=== PATIENT | male | born 1985 | race Hispanic/Latino ===

== ENCOUNTER 2020-11-16 05:04 | Inpatient (IN) | payer SELFPAY ==
[~2020-11-16] VITALS: Ht 185.4 cm; Wt 88.5 kg
[2020-11-16] MEDS ORDERED: ZIPRASIDONE 20 MG VIAL IM STA (05:24)
[2020-11-16] MEDS ORDERED: LORAZEPAM INJ 2 MG/ML VIAL ONE (05:29)
[2020-11-16] MEDS ORDERED: ZIPRASIDONE 20 MG VIAL IM ONE (05:29)
[2020-11-16] MEDS ORDERED: LORAZEPAM INJ 2 MG/ML VIAL IM ONE (05:30)
[2020-11-16 06:27] LABS: BASOPHILS # (AUTO) 0.1 (0.0-0.1); EOSINOPHILS % 0.1 % (0.0-6.0); HEMATOCRIT 35.3 % (38.2-49.6); HEMOGLOBIN 12.2 g/dL (14.0-18.0); LYMPHOCYTES % 10.5 % (18.0-39.1); MEAN CORPUSCULAR HEMOGLOBIN 31.5 pg (28-32); MEAN CORPUSCULAR HGB CONC 34.6 g/dL (31-35); MEAN CORPUSCULAR VOLUME 91.2 fL (81-99); MONOCYTES # (AUTO) 0.7 (0.2-0.8); MONOCYTES % 6.9 % (4.4-11.3); NEUTROPHILS # (AUTO) 7.8 (2.1-6.9); NEUTROPHILS % 81.1 % (38.7-80.0); PLATELET COUNT 216 x10e3/uL (140-360); RED BLOOD COUNT 3.87 x10e6/uL (4.3-5.7); RED CELL DISTRIBUTION WIDTH 12.1 % (11.7-14.4)
[2020-11-16 06:29] LABS: CLARITY,URINE SL CLOUDY (CLEAR); COLOR,URINE YELLOW (YELLOW); LEUKOCYTE ESTERASE ,URINE NEGATIVE (NEGATIVE); NITRITE,URINE NEGATIVE (NEGATIVE); PROTEIN,URINE DIPSTICK 1+ (NEGATIVE)
[2020-11-16 06:30] LABS: KETONES,URINE >=160 (NEGATIVE); URINE UROBILINOGEN 1 mg/dL (0.2 - 1)
[2020-11-16 06:31] LABS: AMPHETAMINES SCREEN,URINE NEGATIVE (NEGATIVE); BENZODIAZEPINES SCREEN,URINE NEGATIVE (NEGATIVE); PHENCYCLIDINE SCREEN,URINE NEGATIVE (NEGATIVE)
[2020-11-16 06:41] LABS: INR 1.06; PROTHROMBIN TIME 14.5 seconds (11.9-14.5)
[2020-11-16 06:42] LABS: BACTERIA,URINE RARE /HPF; EPITHELIAL CELLS,URINE FEW /LPF; PARTIAL THROMBOPLASTIN TIME 29.1 seconds (23.8-35.5)
[2020-11-16 06:50] LABS: ALANINE AMINOTRANSFERASE 43 IU/L (0-55); ALBUMIN 4.2 g/dL (3.5-5.0); ALBUMIN/GLOBULIN RATIO 1.4 (0.8-2.0); ALKALINE PHOSPHATASE 77 IU/L (40-150); ANION GAP 26.4 mmol/L (8-16); BLOOD UREA NITROGEN 31 mg/dL (7-26); BUN/CREATININE RATIO 29 (6-25); CALCIUM 8.9 mg/dL (8.4-10.2); CARBON DIOXIDE 17 mmol/L (22-29); CHLORIDE 96 mmol/L (98-107); CREATINE KINASE 1913 IU/L (30-200); CREATININE, SERUM 1.08 mg/dL (0.72-1.25); EST GLOMERULAR FILTRATION RATE > 60 ML/MIN (60-); GLUCOSE 83 mg/dL (74-118); POTASSIUM 3.4 mmol/L (3.5-5.1); SODIUM 136 mmol/L (136-145)
[2020-11-16 06:52] LABS: SALICYLATE < 5.0 mg/dL (0-30)
[2020-11-16] MEDS ORDERED: SODIUM CHLORIDE 0.9% 1000ML 1,000 ML IV STA (07:07)
[2020-11-16 07:09] LABS: THYROID STIMULATING HORMONE 1.528 uIU/mL (0.350-4.940)
[2020-11-16] MEDS ORDERED: KCL 20MEQ/.9 SOD CHL 1,000 ML IV ONE (07:15)
[2020-11-16] MEDS ORDERED: CEFTRIAXONE SOD 1 GM/NS 50 ML 50 ML IV ONE (07:30)
[2020-11-16] MEDS ORDERED: IOPAMIDOL 370 MG/ML 200 ML INFUS..BTL INJ ONE (07:51)
[2020-11-16] MEDS ORDERED: SODIUM CHLORIDE 0.9% 50ML 0 ML ONE (07:51)
[2020-11-16 07:55] LABS: AMYLASE 32 U/L (25-125); LIPASE 8 U/L (8-78)
[2020-11-16] MEDS ORDERED: DIPHENHYDRAMINE HCL INJ 50 MG/ML VIAL IV ONE (08:15)
[2020-11-16] MEDS ORDERED: LORAZEPAM INJ 2 MG/ML VIAL IV ONE (08:15)
[2020-11-16] MEDS: SODIUM CHLORIDE 0.9% 1000ML 1,000 ML IV SCH ×3 (11:26→20:49)
[2020-11-16 12:15] VITALS: BP 133/78
[2020-11-16 12:58] LABS: CREATINE KINASE MB 20.7 ng/mL (0-5.0)
[2020-11-16 13:10] VITALS: BP 133/78
[2020-11-16 13:45] VITALS: BP 133/78
[2020-11-16] MEDS ORDERED: ZIPRASIDONE 20 MG VIAL IM PRN ×2 (14:30→15:30)
[2020-11-16 16:57] VITALS: BP 124/72
[2020-11-16 18:43] LABS: CREATINE KINASE MB 13.5 ng/mL (0-5.0)
[2020-11-16 21:25] VITALS: BP 160/96
[2020-11-17] VITALS (7 sets, daily range): BP systolic 128–131; BP diastolic 82–101
[2020-11-17] MEDS: SODIUM CHLORIDE 0.9% 1000ML 1,000 ML IV SCH ×4 (04:23→20:20)
[2020-11-17 05:44] LABS: BASOPHILS # (AUTO) 0.1 (0.0-0.1); BASOPHILS % 1.2 % (0.0-1.0); EOSINOPHILS # (AUTO) 0.3 (0.0-0.4); EOSINOPHILS % 6.5 % (0.0-6.0); HEMATOCRIT 34.4 % (38.2-49.6); HEMOGLOBIN 11.4 g/dL (14.0-18.0); LYMPHOCYTES # (AUTO) 1.1 (1.0-3.2); LYMPHOCYTES % 22.9 % (18.0-39.1); MEAN CORPUSCULAR HEMOGLOBIN 31.1 pg (28-32); MEAN CORPUSCULAR HGB CONC 33.1 g/dL (31-35); MONOCYTES # (AUTO) 0.5 (0.2-0.8); MONOCYTES % 10.6 % (4.4-11.3); NEUTROPHILS # (AUTO) 2.9 (2.1-6.9); NEUTROPHILS % 58.6 % (38.7-80.0); PLATELET COUNT 189 x10e3/uL (140-360); RED BLOOD COUNT 3.66 x10e6/uL (4.3-5.7); RED CELL DISTRIBUTION WIDTH 12.4 % (11.7-14.4)
[2020-11-17 06:51] LABS: ALANINE AMINOTRANSFERASE 29 IU/L (0-55); ALBUMIN 3.1 g/dL (3.5-5.0); ALBUMIN/GLOBULIN RATIO 1.1 (0.8-2.0); ALKALINE PHOSPHATASE 69 IU/L (40-150); ANION GAP 11.1 mmol/L (8-16); BLOOD UREA NITROGEN 14 mg/dL (7-26); BUN/CREATININE RATIO 15 (6-25); CALCIUM 7.8 mg/dL (8.4-10.2); CARBON DIOXIDE 24 mmol/L (22-29); CHLORIDE 106 mmol/L (98-107); CREATININE, SERUM 0.91 mg/dL (0.72-1.25); EST GLOMERULAR FILTRATION RATE > 60 ML/MIN (60-); GLUCOSE 152 mg/dL (74-118); POTASSIUM 3.1 mmol/L (3.5-5.1); SODIUM 138 mmol/L (136-145)
[2020-11-17 08:33] LABS: CREATINE KINASE MB 5.8 ng/mL (0-5.0)
[2020-11-17] MEDS: QUETIAPINE FUMARATE 25 MG TAB PO PRN (11:25)
[2020-11-17] MEDS: LORAZEPAM INJ 2 MG/ML VIAL IM PRN (12:14)
[2020-11-17] MEDS ORDERED: QUETIAPINE FUMARATE 25 MG TAB PO SCH (12:45)
[2020-11-17] MEDS ORDERED: LORAZEPAM INJ 2 MG/ML VIAL IM NR (12:45)
[2020-11-17] MEDS ORDERED: HALOPERIDOL LACTATE 5 MG/ML VIAL IM NR (12:45)
[2020-11-17] MEDS ORDERED: DIPHENHYDRAMINE HCL INJ 50 MG/ML VIAL IM NR (12:45)
[2020-11-17] MEDS ORDERED: DIPHENHYDRAMINE HCL INJ 50 MG/ML VIAL ONE ×2 (12:51→22:30)
[2020-11-17] MEDS ORDERED: HALOPERIDOL LACTATE 5 MG/ML VIAL ONE ×2 (12:52→22:31)
[2020-11-17] MEDS: METHADONE HCL 5 MG TAB PO SCH (16:25)
[2020-11-17] MEDS: DIVALPROEX SODIUM 250 MG TAB...DR PO SCH (20:20)
[2020-11-17] MEDS: QUETIAPINE FUMARATE 25 MG TAB PO SCH (20:20)
[2020-11-17] MEDS ORDERED: HALOPERIDOL LACTATE 5 MG/ML VIAL IM ONE (22:30)
[2020-11-17] MEDS ORDERED: DIPHENHYDRAMINE HCL INJ 50 MG/ML VIAL IM ONE (22:30)
[2020-11-17] MEDS ORDERED: LORAZEPAM INJ 2 MG/ML VIAL ONE (22:30)
[2020-11-17] MEDS ORDERED: LORAZEPAM INJ 2 MG/ML VIAL IM ONE (22:30)
[2020-11-18 05:00] VITALS: BP 112/72
[2020-11-18 05:27] VITALS: BP 112/72
[2020-11-18] MEDS ORDERED: LORAZEPAM INJ 2 MG/ML VIAL ONE (05:43)
[2020-11-18] MEDS ORDERED: HALOPERIDOL LACTATE 5 MG/ML VIAL ONE (05:43)
[2020-11-18] MEDS ORDERED: DIPHENHYDRAMINE HCL INJ 50 MG/ML VIAL ONE (05:44)
[2020-11-18] MEDS ORDERED: LORAZEPAM INJ 2 MG/ML VIAL IV ONE (05:45)
[2020-11-18] MEDS ORDERED: DIPHENHYDRAMINE HCL INJ 50 MG/ML VIAL IV ONE (05:45)
[2020-11-18] MEDS ORDERED: HALOPERIDOL LACTATE 5 MG/ML VIAL IV ONE (05:45)
[2020-11-18] MEDS: SODIUM CHLORIDE 0.9% 1000ML 1,000 ML IV SCH ×3 (05:54→22:01)
[2020-11-18 07:53] VITALS: BP 112/72
[2020-11-18] MEDS: DIVALPROEX SODIUM 250 MG TAB...DR PO SCH ×3 (09:06→22:00)
[2020-11-18] MEDS: QUETIAPINE FUMARATE 25 MG TAB PO SCH ×3 (09:06→22:00)
[2020-11-18] MEDS: METHADONE HCL 5 MG TAB PO SCH ×2 (09:06→16:31)
[2020-11-18 09:10] LABS: BASOPHILS # (AUTO) 0.1 (0.0-0.1); BASOPHILS % 1.6 % (0.0-1.0); EOSINOPHILS # (AUTO) 0.3 (0.0-0.4); EOSINOPHILS % 6.3 % (0.0-6.0); HEMOGLOBIN 12.6 g/dL (14.0-18.0); LYMPHOCYTES # (AUTO) 1.4 (1.0-3.2); LYMPHOCYTES % 31.4 % (18.0-39.1); MEAN CORPUSCULAR HEMOGLOBIN 32.1 pg (28-32); MEAN CORPUSCULAR HGB CONC 33.2 g/dL (31-35); MEAN CORPUSCULAR VOLUME 96.9 fL (81-99); MONOCYTES # (AUTO) 0.5 (0.2-0.8); MONOCYTES % 10.3 % (4.4-11.3); NEUTROPHILS # (AUTO) 2.2 (2.1-6.9); NEUTROPHILS % 50.2 % (38.7-80.0); PLATELET COUNT 180 x10e3/uL (140-360); RED BLOOD COUNT 3.92 x10e6/uL (4.3-5.7); RED CELL DISTRIBUTION WIDTH 12.5 % (11.7-14.4)
[2020-11-18 09:55] LABS: ALANINE AMINOTRANSFERASE 30 IU/L (0-55); ALBUMIN 3.1 g/dL (3.5-5.0); ALBUMIN/GLOBULIN RATIO 1.1 (0.8-2.0); ALKALINE PHOSPHATASE 69 IU/L (40-150); ANION GAP 13.1 mmol/L (8-16); BLOOD UREA NITROGEN 5 mg/dL (7-26); BUN/CREATININE RATIO 7 (6-25); CALCIUM 7.7 mg/dL (8.4-10.2); CARBON DIOXIDE 26 mmol/L (22-29); CHLORIDE 102 mmol/L (98-107); CREATINE KINASE 644 IU/L (30-200); CREATININE, SERUM 0.76 mg/dL (0.72-1.25); EST GLOMERULAR FILTRATION RATE > 60 ML/MIN (60-); GLUCOSE 120 mg/dL (74-118); MAGNESIUM 1.6 MG/DL (1.3-2.1); POTASSIUM 3.1 mmol/L (3.5-5.1); SODIUM 138 mmol/L (136-145)
[2020-11-18] MEDS ORDERED: POTASSIUM CHLORIDE 20 MEQ TAB CR PO ONE (11:30)
[2020-11-18 11:51] VITALS: BP 112/72
[2020-11-18] MEDS: QUETIAPINE FUMARATE 25 MG TAB PO PRN (11:53)
[2020-11-18 20:00] VITALS: BP 112/72
[2020-11-18 20:56] VITALS: BP 120/75
[2020-11-19 00:10] VITALS: BP 116/73
[2020-11-19 05:42] VITALS: BP 117/64
[2020-11-19] MEDS: QUETIAPINE FUMARATE 25 MG TAB PO SCH ×3 (05:44→21:21)
[2020-11-19] MEDS: SODIUM CHLORIDE 0.9% 1000ML 1,000 ML IV SCH ×4 (05:44→21:20)
[2020-11-19] MEDS: DIVALPROEX SODIUM 250 MG TAB...DR PO SCH ×3 (05:44→21:21)
[2020-11-19 08:00] VITALS: BP_SYST 112; BP_SYST 117; BP_DIAS 64; BP_DIAS 71
[2020-11-19] MEDS: QUETIAPINE FUMARATE 25 MG TAB PO PRN (09:56)
[2020-11-19] MEDS: METHADONE HCL 5 MG TAB PO SCH ×2 (09:56→17:57)
[2020-11-19 11:49] VITALS: BP 114/78
[2020-11-19 15:57] VITALS: BP 141/86
[2020-11-19 20:26] VITALS: BP 141/86
[2020-11-20] MEDS: SODIUM CHLORIDE 0.9% 1000ML 1,000 ML IV SCH ×3 (04:45→19:25)
[2020-11-20] MEDS: DIVALPROEX SODIUM 250 MG TAB...DR PO SCH ×3 (05:40→22:00)
[2020-11-20] MEDS: QUETIAPINE FUMARATE 25 MG TAB PO SCH ×3 (05:41→22:13)
[2020-11-20 08:00] VITALS: BP 126/77
[2020-11-20] MEDS: METHADONE HCL 5 MG TAB PO SCH ×2 (09:00→15:59)
[2020-11-20 19:35] VITALS: BP 123/79
[2020-11-20 21:16] VITALS: BP 126/77
[2020-11-21 00:23] VITALS: BP 114/61
[2020-11-21] MEDS: SODIUM CHLORIDE 0.9% 1000ML 1,000 ML IV SCH ×4 (02:05→21:39)
[2020-11-21] MEDS: QUETIAPINE FUMARATE 25 MG TAB PO SCH ×3 (05:27→21:38)
[2020-11-21] MEDS: DIVALPROEX SODIUM 250 MG TAB...DR PO SCH ×3 (05:27→21:38)
[2020-11-21 05:37] VITALS: BP 120/75
[2020-11-21 07:39] LABS: BASOPHILS # (AUTO) 0.1 (0.0-0.1); BASOPHILS % 1.2 % (0.0-1.0); EOSINOPHILS # (AUTO) 0.4 (0.0-0.4); HEMATOCRIT 40.2 % (38.2-49.6); LYMPHOCYTES # (AUTO) 1.9 (1.0-3.2); LYMPHOCYTES % 36.7 % (18.0-39.1); MEAN CORPUSCULAR HGB CONC 32.3 g/dL (31-35); MEAN CORPUSCULAR VOLUME 95.7 fL (81-99); MONOCYTES # (AUTO) 0.6 (0.2-0.8); MONOCYTES % 11.1 % (4.4-11.3); NEUTROPHILS # (AUTO) 2.2 (2.1-6.9); NEUTROPHILS % 43.4 % (38.7-80.0); PLATELET COUNT 238 x10e3/uL (140-360); RED CELL DISTRIBUTION WIDTH 12.5 % (11.7-14.4)
[2020-11-21] MEDS: QUETIAPINE FUMARATE 25 MG TAB PO PRN (07:42)
[2020-11-21 08:00] VITALS: BP 120/75
[2020-11-21 08:08] LABS: ALANINE AMINOTRANSFERASE 23 IU/L (0-55); ALBUMIN 3.5 g/dL (3.5-5.0); ALBUMIN/GLOBULIN RATIO 1.2 (0.8-2.0); ALKALINE PHOSPHATASE 80 IU/L (40-150); BLOOD UREA NITROGEN 14 mg/dL (7-26); BUN/CREATININE RATIO 16 (6-25); CALCIUM 8.5 mg/dL (8.4-10.2); CARBON DIOXIDE 29 mmol/L (22-29); CHLORIDE 102 mmol/L (98-107); CREATININE, SERUM 0.89 mg/dL (0.72-1.25); EST GLOMERULAR FILTRATION RATE > 60 ML/MIN (60-); GLUCOSE 104 mg/dL (74-118); SODIUM 138 mmol/L (136-145)
[2020-11-21] MEDS: METHADONE HCL 5 MG TAB PO SCH ×2 (09:00→14:57)
[2020-11-21 20:00] VITALS: BP 119/74
[2020-11-22] VITALS: BP 114/67
[2020-11-22 04:00] VITALS: BP 105/64
[2020-11-22] MEDS: SODIUM CHLORIDE 0.9% 1000ML 1,000 ML IV SCH ×4 (04:45→23:11)
[2020-11-22] MEDS: DIVALPROEX SODIUM 250 MG TAB...DR PO SCH ×3 (05:51→21:50)
[2020-11-22] MEDS: QUETIAPINE FUMARATE 25 MG TAB PO SCH ×3 (05:51→19:54)
[2020-11-22 08:00] VITALS: BP 111/74
[2020-11-22 08:30] VITALS: BP 111/74
[2020-11-22] MEDS: METHADONE HCL 5 MG TAB PO SCH (09:00)
[2020-11-22 12:14] VITALS: BP 118/74
[2020-11-22] MEDS ORDERED: CLONAZEPAM 0.5 MG TAB PO PRN (14:30)
[2020-11-22 16:21] VITALS: BP 151/135
[2020-11-22] MEDS: LORAZEPAM INJ 2 MG/ML VIAL IM PRN (19:19)
[2020-11-23] MEDS: DIVALPROEX SODIUM 250 MG TAB...DR PO SCH ×3 (05:47→22:00)
[2020-11-23] MEDS: QUETIAPINE FUMARATE 25 MG TAB PO SCH ×3 (05:47→22:00)
[2020-11-23] MEDS: SODIUM CHLORIDE 0.9% 1000ML 1,000 ML IV SCH ×3 (07:25→20:45)
[2020-11-23 08:00] VITALS: BP 131/84
[2020-11-23 08:13] VITALS: BP 131/84
[2020-11-23 11:58] VITALS: BP 123/88
[2020-11-23 15:56] VITALS: BP 111/69
[2020-11-23] MEDS: QUETIAPINE FUMARATE 25 MG TAB PO PRN (19:25)
[2020-11-23 20:01] VITALS: BP 111/69
[2020-11-23 21:00] VITALS: BP 123/70
[2020-11-24] MEDS: SODIUM CHLORIDE 0.9% 1000ML 1,000 ML IV SCH ×4 (02:43→23:25)
[2020-11-24] MEDS: QUETIAPINE FUMARATE 25 MG TAB PO SCH ×3 (06:00→20:51)
[2020-11-24] MEDS: DIVALPROEX SODIUM 250 MG TAB...DR PO SCH ×3 (06:00→20:51)
[2020-11-24 09:43] VITALS: BP 123/70
[2020-11-24 16:00] VITALS: BP 120/76
[2020-11-24 20:00] VITALS: BP 123/72
[2020-11-24 22:06] VITALS: BP 123/72
[2020-11-25] MEDS: DIVALPROEX SODIUM 250 MG TAB...DR PO SCH ×3 (06:00→19:54)
[2020-11-25] MEDS: QUETIAPINE FUMARATE 25 MG TAB PO SCH ×3 (06:00→19:54)
[2020-11-25] MEDS: SODIUM CHLORIDE 0.9% 1000ML 1,000 ML IV SCH ×3 (06:05→19:25)
[2020-11-25 07:32] VITALS: BP 92/56
[2020-11-25 09:16] VITALS: BP 92/56
[2020-11-25 11:01] VITALS: BP 136/78
[2020-11-25 15:43] VITALS: BP 124/86
[2020-11-25 21:00] VITALS: BP 124/86
[2020-11-26] VITALS (8 sets, daily range): BP systolic 105–125; BP diastolic 60–73
[2020-11-26] MEDS: SODIUM CHLORIDE 0.9% 1000ML 1,000 ML IV SCH ×4 (02:03→22:05)
[2020-11-26] MEDS: DIVALPROEX SODIUM 250 MG TAB...DR PO SCH ×3 (06:00→20:37)
[2020-11-26] MEDS: QUETIAPINE FUMARATE 25 MG TAB PO SCH ×3 (06:00→20:37)
[2020-11-27] VITALS (8 sets, daily range): BP systolic 102–117; BP diastolic 48–75
[2020-11-27] MEDS: SODIUM CHLORIDE 0.9% 1000ML 1,000 ML IV SCH (04:45)
[2020-11-27] MEDS: DIVALPROEX SODIUM 250 MG TAB...DR PO SCH ×3 (04:53→21:06)
[2020-11-27] MEDS: QUETIAPINE FUMARATE 25 MG TAB PO SCH ×3 (05:25→21:06)
[2020-11-28 01:10] VITALS: BP 108/70
[2020-11-28 05:13] VITALS: BP 118/74
[2020-11-28] MEDS: DIVALPROEX SODIUM 250 MG TAB...DR PO SCH ×2 (06:00→07:22)
[2020-11-28] MEDS: QUETIAPINE FUMARATE 25 MG TAB PO SCH ×2 (06:00→13:01)
[2020-11-28 08:00] VITALS: BP 119/68
[2020-11-28 08:40] VITALS: BP 119/68
[2020-11-28 12:00] VITALS: BP 114/73
[2020-11-28] MEDS ORDERED: SEROQUEL100 MG PO (14:36)
== END 2020-11-28 15:35 | disposition home or self-care (01) | DRG 558 ==
LOC: ER 05:11 → ERHOLD 07:34 → MED/SURG2 12:06
PROVIDERS: ADMIT Internal Medicine; ATTEND Internal Medicine
DX: M62.82 Rhabdomyolysis (principal); E87.2 Acidosis; F25.0 Schizoaffective disorder, bipolar type; F11.10 Opioid abuse, uncomplicated; F29 Unspecified psychosis not due to a substance or known physiological condition; D64.9 Anemia, unspecified; E87.6 Hypokalemia; Z20.822 Contact with and (suspected) exposure to COVID-19
CPT/HCPCS: 36415; 80053; 80307; 80320; 80329; 81001; 82150; 82550; 82553; 82805; 82948; 83605; 83690; 83735; 84443; 84484; 85025; 85610; 85730; 87040; 87086; 93005; 99251; 99284; J0696; J1200; J1630; J2060; J3486; J7030; Q9967; U0002